=== PATIENT | male | born 1960 | race Caucasian/White ===

== ENCOUNTER 2017-09-23 05:23 | Day surgery (SDC) | payer BC, OTHER ==
[2017-09-08 10:48] VITALS: Ht 182.9 cm; Wt 132.4 kg
--- NOTE | 2017-09-08 11:19 | PAT Medication Instructions ---
Service Date Sep 08, 2017. Current Home Medication List Atorvastatin (Lipitor), 20 MG PO QPM Lisinopril (Zestril), 20 MG PO QPM Multiple Vitamins W/ Minerals (Multi For Him 50+), 1 TAB PO QAM Omeprazole (Prilosec), 20 MG PO QAM Venlafaxine Hcl (Venlafaxine Hcl Er), 1 TAB PO QAM [vitamin d2], 50,000 MG PO 2XWK Medication Instructions For Your Scheduled Surgery - Hold the following medications 24 hours prior to surgery: Lisinopril (Zestril), 20 MG PO QPM - Hold the following medications the morning of surgery: [vitamin d2], 50,000 MG PO 2XWK Multiple Vitamins W/ Minerals (Multi For Him 50+), 1 TAB PO QAM - Take the following medications the morning of surgery with a sip of water: Omeprazole (Prilosec), 20 MG PO QAM Venlafaxine Hcl (Venlafaxine Hcl Er), 1 TAB PO QAM - Take the following medications as scheduled the night before surgery: Atorvastatin (Lipitor), 20 MG PO QPM If you have any questions please call us at [phone] or [phone] or [phone]
[2017-09-08 11:44] LABS: BASO % 0.8 %; BASO ABS # 0.06 K/uL (0-0.2); COMPLETE YES; EOS % 1.5 %; HEMATOCRIT 47.6 % (42-52); IG% 0.7 %; LYMPH % 34.8 %; LYMPH ABS # 2.55 K/uL (1.2-3.4); MEAN CELL VOLUME 85.5 fL (80-100); MEAN CORPUSCULAR HEMOGLOBIN 29.1 pg (25-34); MEAN PLATELET VOLUME 8.8 fL (7.4-10.4); MONO % 8.2 %; PLATELET COUNT 224 K/uL (130-400); RED BLOOD COUNT 5.57 M/uL (4.7-6.1); WHITE BLOOD COUNT 7.32 K/uL (4.8-10.8)
--- NOTE | 2017-09-08 12:16 | DIAGNOSTIC IMAGING REPORT ---
CHEST 2 VIEWS ROUTINE CLINICAL HISTORY: Preoperative evaluation. COMPARISON STUDY: No previous studies for comparison. FINDINGS: Lung volumes are normal. No consolidation is identified and is no evidence of pulmonary edema. Cardiomediastinal silhouette is unremarkable. There is no pneumothorax or pleural effusion. IMPRESSION: No acute cardiopulmonary findings. Electronically signed by: Anson Ospina M.D. 09/08/2017 12:14 PM Dictated Date/Time: 09/08/2017 12:13 PM
[2017-09-08 14:44] LABS: BUN/CREATININE RATIO 14.6 (10-20); CALCIUM 9.8 mg/dl (8.5-10.1); CREATININE 0.9 mg/dl (0.60-1.40); POTASSIUM 4.8 mmol/L (3.5-5.1)
[~2017-09-23] VITALS: Ht 182.9 cm; Wt 132.4 kg
[~2017-09-23 05:23] MED LIST: ATOR-54 PO; LISI-725 PO; MULT-221 PO; PRLSR20 PO; VENL150T33 PO; vitamin d2 PO
[2017-09-23] MEDS ORDERED: CHOL1000 PO (05:52)
[2017-09-23 05:56] VITALS: BP 141/89; PULSE 73; TEMP 37; O2SAT 96
[2017-09-23] MEDS ORDERED: LACTATED RINGER'S 1000ML 1,000 ML IV SCH ×2 (06:00→08:12)
--- NOTE | 2017-09-23 06:28 | History & Physical Bridge Note ---
H&P Re-Evaluation Bridge Note: I have examined the patient, reviewed the History & Physical and in the interval since the performance of the History & Physical I have noted the following changes of clinical significance: No changes noted pt marked SO at bedside all questions answered
[2017-09-23] MEDS ORDERED: ONDANSETRON INJ 2 MG/ML 2 ML VIAL IV PRN ×2 (06:45→08:15)
[2017-09-23] MEDS ORDERED: HYDROmorphone INJ 1 MG/ML SYR IV PRN (06:45)
[2017-09-23] MEDS ORDERED: EpHEDrine SULFATE INJ 50 MG/ML AMP IV PRN (06:45)
[2017-09-23] MEDS ORDERED: ATROPINE SULFATE 0.1 MG/ML 5ML SYR IV PRN (06:45)
[2017-09-23] MEDS ORDERED: METOCLOPRAMIDE HCL INJ 5 MG/ML 2 ML VIAL IV PRN (06:45)
[2017-09-23] MEDS ORDERED: BUPIVACAINE/EPINEPHRINE 0.5% MPF 1:200,000 30 ML VIAL ONE (06:49)
[2017-09-23] MEDS ORDERED: MIDAZOLAM HCL 1 MG/ML 2ML VIAL ONE (06:50)
[2017-09-23] MEDS ORDERED: FENTANYL CITRATE INJ 50 MCG/1 ML 2 ML VIAL ONE (06:50)
[2017-09-23] MEDS ORDERED: LIDOCAINE HCL 2% 2 ML VIAL (20MG/ML) ONE (06:50)
[2017-09-23] MEDS ORDERED: PROPOFOL IV EMULSION 10 MG/ML 20 ML VIAL IV ONE ×2 (06:50→07:22)
[2017-09-23] MEDS ORDERED: CEFAZOLIN SOD 1 GM VIAL ONE ×2 (07:07→07:22)
[2017-09-23] MEDS ORDERED: LABETALOL HCL IV 5 MG/ML 20ML IV ONE (07:22)
[2017-09-23] MEDS ORDERED: SUCCINYLCHOLINE CHLORIDE 20 MG/ML 10 ML VIAL IV ONE (07:22)
[2017-09-23] MEDS ORDERED: ALBUTEROL HFA INHALER 8.5 GM INH ONE (07:22)
[2017-09-23] MEDS ORDERED: DEXAMETHASONE SOD INJ 4 MG/ML VIAL ONE (07:23)
[2017-09-23] MEDS ORDERED: ONDANSETRON INJ 2 MG/ML 2 ML VIAL ONE (07:23)
[2017-09-23] MEDS ORDERED: OXYC-57 PO (08:10)
--- NOTE | 2017-09-23 08:12 | Discharge Instructions ---
Discharge Instructions Date of Service Sep 23, 2017. Visit Reason for Visit: Umbilical Hernia Discharge Discharge Diagnosis / Problem: hernia repair Discharge Goals Goal(s): Decrease discomfort Activity Recommendations Activity Limitations: as noted below Lifting Limitations: no more than 10 pounds Shower/Bathe: no limitations (leave bandage on for 2-3 days, it is waterproof) Driving or Machine Use: resume 3 days after discharge Anesthesia . Post Anesthesia Instructions: If you have had General Anesthesia or IV Sedation: * Do not drive today. * Resume driving when surgeon permits. * Do not make important decisions or sign legal documents today. * Call surgeon for: 1. Temperature elevations greater than 101 degrees F. 2. Uncontrollable pain. 3. Excessive bleeding. 4. Persistent nausea and vomiting. 5. Medication intolerance (nausea, vomiting or rash). * For nausea and vomiting use only clear liquids such as: tea, soda, bouillon until nausea subsides, then gradually increase diet as tolerated. * If you have any concerns or questions, call your surgeon's office. If physician is unavailable and it is an emergency, call 911 or go to the nearest emergency room. . Instructions / Follow-Up Instructions / Follow-Up Dr. Beach in 1 week, call [phone] for any questions Diet Recommendations Recommended Home Diet: no limitations Procedures Procedures Performed: Open Incarcerated Umbilical Hernia Repair with C-Qur 4.3 cm x 4.3 cm Mesh Pending Studies Studies pending at discharge: no Medical Emergencies . Who to Call and When: Medical Emergencies: If at any time you feel your situation is an emergency, please call 911 immediately. . Non-Emergent Contact Non-Emergency issues call your: Surgeon Call Non-Emergent contact if: you have a fever, temperature is above 101.5, your pain is not controlled, wound has increased redness, you have any medication questions . . "Provider Documentation" section prepared by Rudi Perez. . [place] Drug Monitoring Program Search Results: no issues identified
[2017-09-23] MEDS ORDERED: OXYCODONE/ACETAMINOPHEN 5-325 TAB PO PRN (08:15)
[2017-09-23] MEDS ORDERED: MoRPHine SULFATE 4 MG/ML 1 ML CARP\\VIAL IV PRN (08:15)
--- NOTE | 2017-09-23 08:15 | [facility] Operative Report ---
Operative Report Operative Date Sep 23, 2017. Pre-Operative Diagnosis Irreducible umbilical hernia Post-Operative Diagnosis Irreducible umbilical hernia Procedure(s) Performed Open Incarcerated Umbilical Hernia Repair with C-Qur 4.3 cm x 4.[address] Moses Beach Breaster Surgeon(s) Rudi Perez PA-C Estimated Blood Loss 5 mL Findings maximino 2 cm with incarcerated fatty tissue Specimens No pathology specimen per surgeon Anesthesia general and .5% marcaine local(10cc) Description of Procedure OR summary dictated # [id number] I attest to the content of the Intraoperative Record and any orders documented therein. Any exceptions are noted below.
--- NOTE | 2017-09-23 08:45 | OPERATIVE REPORT ---
DATE OF OPERATION: 09/23/2017 PREOPERATIVE DIAGNOSIS: Incarcerated umbilical hernia. POSTOPERATIVE DIAGNOSIS: Same with defect approximately 2 cm. PROCEDURE: Repair of incarcerated umbilical hernia open with 4.3 cm [place] mesh. SURGEON: Dr. Beach. PILLOW FILLER: Laz Perez PA-C. OPERATION AND FINDINGS: SUMMARY: The patient was brought into the operating room theater. The abdomen was prepped with Betadine scrubbing solution and properly draped. I made sure that the umbilical cavity and skin was properly draped and debrided of any crust. At this point, we made an incision from 3 and 9 o'clock position inferiorly in a smiley incision deepened through subcutaneous tissue. We minimized electrocautery up towards the skin edge and dissected down to the abdominal wall inferiorly. We were probably down about an inch and a half until we got to the abdominal wall. We circumferentially freed up the fascia from surrounding tissue, identifying the hernial sac as we freed it up from the umbilical skin making sure that we did not use any electrocautery with sharp dissection and make sure not to the vascularize the umbilical tissue. Once we were able to get into the area, we were able then to reduce the sac and its contents intraabdominally. We freed underneath circumferentially by placing a finger. There were a few adhesive bands underneath that as my finger dissected out bluntly that we clipped and divided. There was no bleeding appreciated. We did not enter the peritoneal cavity. At this point, we outlined the defect which was approximately about 2 cm; therefore I elected to bring a 4.3 [place] mesh, brought it into the field, placed it intraabdominally. The straps were elevated and sutured at 12 and 6 o'clock position with 2-0 nylon suture. We then circumferentially went around probably placing 2 more sutures on the fascia down to the mesh. These sutures were placed around were spaced approximately 0.5 cm. At this point, the repair appeared solid. There was minimal tissue around the opening and access. We left this intact. When we were done, we had basically had a 4.3 cm mesh underneath the defect that was about 2 cm. I did not close the umbilical opening in the defect per se and gaped that with a tension free type on the anterior surface of the mesh. We then closed subcutaneous tissue with 2-0 Vicryl interrupted sutures and 4-0 Monocryl. Steri-Strips applied. The procedure was tolerated well by the patient. We did use more local anesthetic prior to closing the subQ, which was 0.5% Marcaine as a field block around the operative site. A dental roll was placed in the umbilical area and a pressure dressing applied. The procedure was tolerated well by the patient. Minimal blood loss 5 mL. The patient was taken to recovery room in good condition. I attest to the content of the Intraoperative Record and any orders documented therein. Any exception s are noted below.
[2017-09-23] MEDS: FENTANYL CITRATE INJ 50 MCG/1 ML 2 ML VIAL IV PRN ×2 (08:46→08:53)
[2017-09-23 09:15] VITALS: BP 127/73; PULSE 75; TEMP 37.1; O2SAT 94
--- NOTE | 2017-09-23 09:15 | Anesthesiology Progress Note ---
Anesthesia Post Op Note Date & Time Sep 23, 2017 at 09:14 Vital Signs Pain Intensity: 2 Vital Signs Past 12 Hours Date Time Temp Pulse Resp B/P (MAP) Pulse Ox O2 Delivery O2 Flow Rate FiO2 09/23/17 09:05 81 16 133/95 94 Room Air 09/23/17 08:55 76 16 151/89 92 Room Air 09/23/17 08:45 72 16 137/87 97 Oxymask 10 09/23/17 08:35 77 24 144/89 97 Oxymask 10 09/23/17 08:28 36.2 80 24 144/90 97 Oxymask 10 09/23/17 05:56 37 73 20 141/89 (106) 96 Room Air Notes Mental Status: alert / awake / arousable, participated in evaluation Pt Amnestic to Procedure: Yes Nausea / Vomiting: adequately controlled Pain: adequately controlled Airway Patency, RR, SpO2: stable & adequate BP & HR: stable & adequate Hydration State: stable & adequate Anesthetic Complications: no major complications apparent Awake, no complaints. VSS.
[2017-09-23 09:45] VITALS: BP 123/71; PULSE 77; O2SAT 92
[2017-09-23 10:10] VITALS: BP 125/66; PULSE 75; TEMP 36.8; O2SAT 95
== END 2017-09-23 10:10 | disposition home or self-care (01) ==
LOC: C.ACU 05:23
PROVIDERS: ATTEND Surgery
DX: K42.0 Umbilical hernia with obstruction, without gangrene (principal); I10 Essential (primary) hypertension; E78.00 Pure hypercholesterolemia, unspecified; K57.30 Diverticulosis of large intestine without perforation or abscess without bleeding; M19.90 Unspecified osteoarthritis, unspecified site; M10.9 Gout, unspecified; Z79.899 Other long term (current) drug therapy; J45.909 Unspecified asthma, uncomplicated; G47.33 Obstructive sleep apnea (adult) (pediatric); K21.9 Gastro-esophageal reflux disease without esophagitis; F41.9 Anxiety disorder, unspecified; F32.9 Major depressive disorder, single episode, unspecified; G62.9 Polyneuropathy, unspecified; E66.9 Obesity, unspecified; Z68.39 Body mass index [BMI] 39.0-39.9, adult; F17.200 Nicotine dependence, unspecified, uncomplicated